=== PATIENT | female | born 1995 | race Caucasian/White ===

== ENCOUNTER 2024-03-26 12:25 | Emergency (ER) | payer OTHER, SELFPAY ==
[2024-03-26 14:50] LABS: Actual Bicarbonate (HCO3v) 22.9 mEq/L (22-28); Analyzer IN Cardio ER; Base Excess -2.1 mEq/L (-2.0 to +3.0); Calcium, Ionized (venous) 1.21 mmol/L (1.16-1.32); Chloride (VBG) 103 mmol/L (98-106); Hematocrit-VBG 42 % (36.0-47.0); Hemoglobin (Hb) 14.3 g/dL (11.7-15.5); Potassium (VBG) 4.25 mmol/L (3.70-5.30); Sodium 140 mmol/L (133-146); pH (venous) 7.375 (7.32-7.43)
[2024-03-26 15:26] LABS: Pregnancy Test - Urine (BHCG) Negative (Negative); Pregu Control Background? CLEAR/WHITE (CLR/WHITE); Pregu Control Bar Appear? YES (CONTROL BAR)
== END 2024-03-26 17:24 | disposition home or self-care (01) ==
LOC: ERS 12:25
DX: T58.91XA Toxic effect of carbon monoxide from unspecified source, accidental (unintentional), initial encounter (principal)
CPT/HCPCS: 36415; 71045; 81025; 82805; 93005